=== PATIENT | female | born 1975 | race Caucasian/White ===

== ENCOUNTER 2023-03-28 13:19 | Outpatient (CLI) | payer BC ==
[~2023-03-28 13:19] MED LIST: Magnevist 469MG/ML 20 ML VIAL ONE
== END 2023-03-28 13:20 | disposition home or self-care (01) ==
LOC: BICMRI 13:19
PROVIDERS: ATTEND Obstetrics & Gynecology
DX: Z12.31 Encounter for screening mammogram for malignant neoplasm of breast (principal); Z80.3 Family history of malignant neoplasm of breast
CPT/HCPCS: 77063; 77067; C8908